=== PATIENT | female | born 1930 | race Caucasian/White ===

== ENCOUNTER 2018-05-08 03:12 | Emergency (ER) | payer MEDICARE, BC ==
[~2018-05-08] VITALS: Ht 172.7 cm; Wt 99.8 kg
[~2018-05-08 03:12] MED LIST: ACID CONTROL20 MG PO; ALBUTEROL INHAL17 GM IH; ALBUTEROL2.5 MG/3 M IH; APAP500; AUGMENTIN 875875 MG PO; BENICAR40 MG PO; BIOTIN2500 MCG PO; Biotin PO; CENTRUM SILVER1 EAC4 PO; CIPRO500 MG PO; CIPRODEX OTIC7.5 ML OTIC; CIPROFLOXACIN500 M1 PO; COLACE100 MG PO; COUMADIN 1MG TAB1 M1 PO; COUMADIN 2 MG TA2 M1 PO; COUMADIN 2.5MG2.5 M1 PO; COUMADIN 3 MG TA3 M1 PO; COUMADIN 4 MG TA4 M1; COUMADIN 5 MG TA5 M1 PO; COUMADIN PO; COUMADIN6 MG; COUMADIN6 MG PO; COZAAR 50 MG TA50 M2 PO; CRESTOR10 MG PO; DUONEB 2.5-0.5 M3 ML INH; ELIQUIS2.5 MG PO; ENABLEX15 MG PO; FAMOTIDINE20 MG PO; FIBER GUMMIES2.5 GM PO; FIBERCON CHEWA625 MG PO; FIBERCON PO; FIBERCON625 M1; FIBERCON625 M1 PO; KEFLEX500 MG PO; LANOXIN 0.120.125 M1 PG; LANOXIN 0.120.125 M1 PO; LASIX 20 MG TAB20 MG PO; LEVAQUIN 500 M500 M2 PO; LIPITOR20 MG PO; LOPRESSOR PO; MOTION RELIEF25 MG PO; MULTIVITAMINS1 EAC7 PO; MYRBETRIQ25 MG; NORCO 5-325 TA1 EACH PO; ONDANSETRON ODT4 MG PO; OXYBUTYNIN 5 MG5 M1 PO; PACERONE 200 M200 M1 PO; PEPCID20 MG PO; PEPCID40 MG; PREDNISONE 10 M10 MG PO; PREDNISONE 20 M20 M1 PO; PREMARIN VAGI42.5 G1 TOP; PRENATAL PO; PROPAFENONE 22225 M1 PO; PROTONIX40 M1 PO; PROTONIX40 M2 PO; SENNA PO; SIMVASTATIN40 MG PO; SOTALOL80 MG PO; SYMBICORT INH; SYMBICORT160 MCG/4. INH; SYNTHROID100 MCG PO; TAMIFLU30 MG PO; TOPROL XL50 MG PO; TRAMADOL 50 MG50 MG PO; TYLENOL325 MG PO; VENTOLIN HFA 1818 GM INH; WARFARIN SODIUM6 MG PO; XARELTO10 MG PO; ZANTAC 150MG T150 MG PO; ZANTAC 7575 MG PO
[2018-05-08] MEDS ORDERED: CARTIA XT120 M1 (03:22)
[2018-05-08 03:57] LABS: ABSOLUTE BASOPHILS 0.1 thou/uL (0.0-0.2); ABSOLUTE EOSINOPHILS 0.3 thou/uL (0.0-0.7); ABSOLUTE LYMPHOCYTES 2.2 thou/uL (0.8-5.3); ABSOLUTE MONOCYTES 0.6 thou/uL (0.0-1.2); ABSOLUTE NEUTROPHILS 4.4 thou/uL (1.6-8.1); BASOPHILS 0.9 %; EOSINOPHILS 3.4 %; HEMATOCRIT 40.6 % (37.0-47.0); HEMOGLOBIN 13.5 gm/dL (12.0-15.0); LYMPHOCYTES 28.8 %; MCH 29.6 pg (26.0-34.0); MCHC 33.2 g/dL (28.0-37.0); MONOCYTES 8.3 %; NUCLEATED RBCS 0 /100WBC; PLATELET COUNT* 138 thou/uL (150-400); POLYS 58.6 %; RBC 4.56 mil/uL (4.20-5.00); RDW-CV 14.2 % (10.5-14.5); WBC 7.5 thou/uL (4.0-11.0)
[2018-05-08 04:12] LABS: PROTIME 10.4 Seconds (9.20-11.50)
[2018-05-08 04:18] LABS: ANION GAP 7 mmol/L (7-16); BUN 20 mg/dL (7-18); CALCIUM 9.7 mg/dL (8.5-10.1); CHLORIDE 105 mmol/L (98-107); CO2 28 mmol/L (21-32); CREATININE 1.2 mg/dL (0.6-1.3); GLUCOSE 138 mg/dL (70-99); POTASSIUM 3.9 mmol/L (3.5-5.1); SODIUM 140 mmol/L (136-145)
[2018-05-08 04:30] LABS: ALBUMIN 3.3 g/dL (3.4-5.0); ALKALINE PHOSPHATASE 107 U/L (46-116); LIPASE 62 U/L (73-393); NT-PRO BRAIN NAT PEPTIDE 1050 pg/mL (<300); SGOT 15 U/L (15-37); SGPT 16 U/L (30-65); TOTAL BILIRUBIN 0.4 mg/dL (<0.1-1.0); TOTAL PROTEIN 6.6 g/dL (6.4-8.2); TROPONIN-I LEVEL <0.06 ng/mL (<0.06)
[2018-05-08 04:48] LABS: URINE BILIRUBIN NEGATIVE (Negative); URINE BLOOD TRACE (Negative); URINE CLARITY CLEAR; URINE COLOR YELLOW; URINE GLUCOSE-RANDOM NEGATIVE (Negative); URINE KETONES NEGATIVE (Negative); URINE LEUKOCYTES-REFLEX NEGATIVE (Negative); URINE NITRITE-REFLEX NEGATIVE (Negative); URINE PROTEIN NEGATIVE (Negative); URINE UROBILINOGEN 0.2 E.U./dl (0.2-1.0)
[2018-05-08] MEDS ORDERED: MOTION RELIEF25 MG PO (06:11)
[2018-05-08] MEDS ORDERED: ZOFRAN ODT4 MG PO (06:11)
[2018-05-08] MEDS ORDERED: CARAFATE 1 GM TA1 GM PO (06:16)
[2018-05-08 06:20] VITALS: BP 140/68
--- NOTE | 2018-05-08 13:43 | EKG ---
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: : 1930 Requested By: Kelly Mccurdy Order Number: [id number] MD: Michael Mora Measurements Intervals [place] Rate: 70 P: [place]: QRS: -78 QRSD: 167 T: 66 QT: 468 QTc: 506 Interpretive Statements Afib/flut and V-paced complexes No further analysis attempted due to paced rhythm Compared to ECG 07/25/2016 20:26:47 No significant changes Electronically Signed On 05-08-2018 13:43:32 CANDY CATCHER by Michael Mora [email or web address] <ELECTRONICALLY SIGNED> By: Michael Mora MD, [facility] 05/08/18 1343 0319 0319 Michael Mora MD, FAC /EPI
== END 2018-05-08 06:20 | disposition home or self-care (01) ==
LOC: M.ERS 03:12
PROVIDERS: Emergency Medicine
DX: K30 Functional dyspepsia (principal); R42 Dizziness and giddiness; I48.91 Unspecified atrial fibrillation; I10 Essential (primary) hypertension; J45.909 Unspecified asthma, uncomplicated; M19.90 Unspecified osteoarthritis, unspecified site; Z91.040 Latex allergy status; Z88.6 Allergy status to analgesic agent

== ENCOUNTER 2019-05-02 16:43 | Emergency (ER) | payer MEDICARE, BC ==
[~2019-05-02] VITALS: Ht 172.7 cm; Wt 92.1 kg
[~2019-05-02 16:43] MED LIST changes: +CARAFATE 1 GM TA1 GM PO; +CARTIA XT120 M1; +DOXYCYCLINE 10100 MG PO; +MECLIZINE HCL25 MG PO; +NEXIUM40 MG PO; +ZOFRAN ODT4 MG PO
[2019-05-02 17:46] LABS: ABSOLUTE EOSINOPHILS 0.1 thou/uL (0.0-0.7); ABSOLUTE LYMPHOCYTES 1.3 thou/uL (0.8-5.3); ABSOLUTE MONOCYTES 0.6 thou/uL (0.0-1.2); BASOPHILS 0.7 %; EOSINOPHILS 1.3 %; HEMATOCRIT 35.7 % (37.0-47.0); HEMOGLOBIN 12.1 gm/dL (12.0-15.0); LYMPHOCYTES 21.2 %; MCH 29.8 pg (26.0-34.0); MCHC 33.9 g/dL (28.0-37.0); MCV 87.9 fL (80.0-100.0); MONOCYTES 9.9 %; MPV 8.5 fl. (7.2-11.1); NUCLEATED RBCS 0 /100WBC; PLATELET COUNT* 131 thou/uL (150-400); POLYS 66.9 %; RBC 4.06 mil/uL (4.20-5.00); RDW-CV 13.9 % (10.5-14.5)
[2019-05-02 17:53] LABS: CALCIUM 9.8 mg/dL (8.5-10.1); INR 1.1; POTASSIUM 4.1 mmol/L (3.5-5.1); PROTIME 10.8 Seconds (9.20-11.50)
[2019-05-02 18:03] LABS: ALBUMIN 2.7 g/dL (3.4-5.0); TOTAL BILIRUBIN 0.4 mg/dL (<0.1-1.0); TOTAL PROTEIN 5.9 g/dL (6.4-8.2)
[2019-05-02 18:41] LABS: URINE BILIRUBIN NEGATIVE (Negative); URINE BLOOD NEGATIVE (Negative); URINE CLARITY CLEAR; URINE COLOR YELLOW; URINE GLUCOSE-RANDOM NEGATIVE (Negative); URINE KETONES NEGATIVE (Negative); URINE LEUKOCYTES-REFLEX NEGATIVE (Negative); URINE NITRITE-REFLEX NEGATIVE (Negative); URINE PROTEIN NEGATIVE (Negative); URINE UROBILINOGEN 0.2 E.U./dl (0.2-1.0)
[2019-05-02] MEDS ORDERED: ACIPHEX 20 MG T20 MG PO (18:55)
[2019-05-02 19:40] VITALS: BP 146/74
--- NOTE | 2019-05-03 12:48 | EKG ---
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1930 Requested By: Larry Land Order Number: [id number] MD: Vaughn Bright Measurements Intervals [place] Rate: 69 P: [place]: QRS: -77 QRSD: 141 T: 75 QT: 407 QTc: 436 Interpretive Statements Afib/flut and V-paced complexes No further analysis attempted due to paced rhythm Baseline wander in lead(s) III,aVL,aVF Compared to ECG 11/16/2018 08:45:08 No significant changes Electronically Signed On 05-03-2019 12:48:17 PIPE BLANKS CUT OFF SAW OPERATOR by Vaughn Bright [email or web address] <ELECTRONICALLY SIGNED> By: Vaughn Bright MD, FAC 05/03/19 1248 1651 1651 Vaughn Bright MD, [facility] /EPI
== END 2019-05-02 19:42 | disposition home or self-care (01) ==
LOC: M.ERS 16:43
PROVIDERS: Emergency Medicine
DX: K21.9 Gastro-esophageal reflux disease without esophagitis (principal); I10 Essential (primary) hypertension; I48.91 Unspecified atrial fibrillation; E10.9 Type 1 diabetes mellitus without complications; J45.909 Unspecified asthma, uncomplicated; M19.90 Unspecified osteoarthritis, unspecified site; Z96.651 Presence of right artificial knee joint; Z90.710 Acquired absence of both cervix and uterus; Z95.0 Presence of cardiac pacemaker; Z91.048 Other nonmedicinal substance allergy status; Z91.040 Latex allergy status; Z88.6 Allergy status to analgesic agent

== ENCOUNTER 2020-01-23 06:28 | Emergency (ER) | payer MEDICARE, BC ==
[~2020-01-23] VITALS: Ht 172.7 cm; Wt 88.5 kg
[~2020-01-23 06:28] MED LIST changes: +ACIPHEX 20 MG T20 MG PO
[2020-01-23] MEDS ORDERED: TRADJENTA5 MG (06:44)
[2020-01-23 06:54] LABS: ABSOLUTE BASOPHILS 0.1 thou/uL (0.0-0.2); ABSOLUTE EOSINOPHILS 0.1 thou/uL (0.0-0.7); ABSOLUTE LYMPHOCYTES 1.3 thou/uL (0.8-5.3); ABSOLUTE MONOCYTES 0.4 thou/uL (0.0-1.2); ABSOLUTE NEUTROPHILS 5.9 thou/uL (1.6-8.1); BASOPHILS 0.9 %; EOSINOPHILS 1.5 %; HEMOGLOBIN 13.6 gm/dL (12.0-15.0); LYMPHOCYTES 16.8 %; MCHC 34.1 g/dL (28.0-37.0); MONOCYTES 5.7 %; NUCLEATED RBCS 0 /100WBC; PLATELET COUNT* 127 thou/uL (150-400); POLYS 75.1 %; RBC 4.54 mil/uL (4.20-5.00); RDW-CV 14.5 % (10.5-14.5); WBC 7.9 thou/uL (4.0-11.0)
[2020-01-23 07:02] LABS: INR 1.1; PROTIME 11.1 Seconds (9.20-11.50)
[2020-01-23 07:07] LABS: CALCIUM 9.5 mg/dL (8.5-10.1); POTASSIUM 4.1 mmol/L (3.5-5.1)
[2020-01-23 07:18] LABS: ALBUMIN 3.3 g/dL (3.4-5.0); MAGNESIUM 1.7 mg/dL (1.8-2.4); TOTAL BILIRUBIN 0.5 mg/dL (<0.1-1.0); TOTAL PROTEIN 6.7 g/dL (6.4-8.2)
[2020-01-23 07:56] LABS: URINE BILIRUBIN NEGATIVE (Negative); URINE BLOOD 3+ (Negative); URINE CLARITY CLEAR; URINE COLOR YELLOW; URINE GLUCOSE-RANDOM NEGATIVE (Negative); URINE KETONES NEGATIVE (Negative); URINE LEUKOCYTES-REFLEX NEGATIVE (Negative); URINE NITRITE-REFLEX NEGATIVE (Negative); URINE PROTEIN NEGATIVE (Negative); URINE SPECIFIC GRAVITY >= 1.030 (1.005-1.030); URINE UROBILINOGEN 0.2 E.U./dl (0.2-1.0)
[2020-01-23 08:03] LABS: BACTERIA-REFLEX None Seen /HPF (None Seen); SQUAMOUS 0-3 Few /LPF (0-3); URINE RBC 3-10 Few /HPF (0-2); URINE WBC-REFLEX None Seen /HPF (0-5)
[2020-01-23 08:04] LABS: CALCIUM OXALATE >10 Many /LPF (None Seen); CASTS None Seen /LPF (None Seen); MUCUS 4-6 Moderate strn/LPF (None Seen)
[2020-01-23] MEDS ORDERED: MACROBID 100 M100 M1 PO (09:36)
[2020-01-23] MEDS ORDERED: ZOFRAN ODT4 MG PO (09:36)
[2020-01-23 09:49] VITALS: BP 141/75
--- NOTE | 2020-01-23 13:41 | EKG ---
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: : 1930 Requested By: Kelly Mccurdy Order Number: [id number] MD: Sonny Melendez Measurements Intervals [place] Rate: 70 P: [place]: QRS: -78 QRSD: 158 T: 71 QT: 466 QTc: 503 Interpretive Statements Afib/flutter and ventricular-paced rhythm No further analysis attempted due to paced rhythm Baseline wander in lead(s) III,V5 Compared to ECG 05/02/2019 16:51:48 No significant changes Electronically Signed On 01-23-2020 13:41:27 CDT by Sonny Melendez [email or web address] <ELECTRONICALLY SIGNED> By: Sonny Melendez MD, [facility] 01/23/20 1341 1 1 Sonny Melendez MD, [facility] /EPI
== END 2020-01-23 09:50 | disposition home or self-care (01) ==
LOC: M.ERS 06:28
PROVIDERS: Emergency Medicine
DX: K80.20 Calculus of gallbladder without cholecystitis without obstruction (principal); R31.9 Hematuria, unspecified; R10.31 Right lower quadrant pain; I10 Essential (primary) hypertension; J45.909 Unspecified asthma, uncomplicated; M19.90 Unspecified osteoarthritis, unspecified site; E10.9 Type 1 diabetes mellitus without complications; Z91.040 Latex allergy status; Z88.6 Allergy status to analgesic agent; Z79.899 Other long term (current) drug therapy; Z96.651 Presence of right artificial knee joint; Z90.710 Acquired absence of both cervix and uterus

== ENCOUNTER 2020-10-01 16:49 | Emergency (ER) | payer MEDICARE, BC ==
[~2020-10-01] VITALS: Ht 170.2 cm; Wt 92.1 kg
[~2020-10-01 16:49] MED LIST changes: +MACROBID 100 M100 M1 PO; +TRADJENTA5 MG
[2020-10-01 17:23] LABS: RDW-CV 14.7 % (10.5-14.5)
[2020-10-01 17:25] LABS: ABSOLUTE EOSINOPHILS 0.2 thou/uL (0.0-0.7); ABSOLUTE LYMPHOCYTES 1.9 thou/uL (0.8-5.3); ABSOLUTE MONOCYTES 0.5 thou/uL (0.0-1.2); ABSOLUTE NEUTROPHILS 3.2 thou/uL (1.6-8.1); BASOPHILS 0.8 %; EOSINOPHILS 3.4 %; HEMATOCRIT 38.9 % (37.0-47.0); LYMPHOCYTES 31.9 %; MCH 29.2 pg (26.0-34.0); MCHC 33.4 g/dL (28.0-37.0); MCV 87.6 fL (80.0-100.0); MPV 7.9 fl. (7.2-11.1); NUCLEATED RBCS 0 /100WBC; PLATELET COUNT* 136 thou/uL (150-400); POLYS 55.9 %; RBC 4.44 mil/uL (4.20-5.00); WBC 5.8 thou/uL (4.0-11.0)
[2020-10-01 17:34] LABS: CALCIUM 9.4 mg/dL (8.5-10.1); CREATININE 0.9 mg/dL (0.6-1.3); POTASSIUM 4.2 mmol/L (3.5-5.1)
[2020-10-01 17:39] LABS: APTT 26.4 Seconds (25.0-31.3); INR 1.1; PROTIME 11.3 Seconds (9.20-11.50)
[2020-10-01 17:44] LABS: ALBUMIN 3.2 g/dL (3.4-5.0); TOTAL BILIRUBIN 0.3 mg/dL (<0.1-1.0); TOTAL PROTEIN 6.9 g/dL (6.4-8.2)
[2020-10-01 18:46] VITALS: BP 138/72
--- NOTE | 2020-10-02 09:38 | EKG ---
[place] [address] ELECTROCARDIOGRAM REPORT Name: ALYCE RIBEIRO Room: [facility]#: [id number] Admission: 10/01/20 Attend Phys: Discharge: 10/01/20 Date of : 32 Date of Service: 10/01/20 1710 Report #: [id number] THIS REPORT FOR: //name// [facility] ED Test Date: 2020-10-01 Test Time: 17:10:34 Pat Name: ALYCE RIBEIRO Department: Room: Gender: F Data Integrity Analyst: ANDRE : 1930 Requested By: Isidro Ramos Order Number: [id number] MD: Sonny Melendez Measurements Intervals [place] Rate: 70 P: [place]: QRS: -81 QRSD: 144 T: 55 QT: 452 QTc: 488 Interpretive Statements Afib/flut and V-paced complexes No further analysis attempted due to paced rhythm Compared to ECG 01/23/2020 07:12:36 No significant changes Electronically Signed On 10-02-2020 9:37:56 CDT by Sonny Melendez [email or web address] <ELECTRONICALLY SIGNED> By: Sonny Melendez MD, [facility] 10/02/20 0937 1710 1710 Sonny Melendez MD, [facility] /EPI
== END 2020-10-01 18:47 | disposition home or self-care (01) ==
LOC: M.ERS 16:49
PROVIDERS: Family Medicine
DX: R42 Dizziness and giddiness (principal); R51.9 Headache, unspecified; I10 Essential (primary) hypertension; J45.909 Unspecified asthma, uncomplicated; E10.9 Type 1 diabetes mellitus without complications; I48.91 Unspecified atrial fibrillation; Z95.0 Presence of cardiac pacemaker; Z96.651 Presence of right artificial knee joint; Z90.711 Acquired absence of uterus with remaining cervical stump; Z79.899 Other long term (current) drug therapy; Z91.048 Other nonmedicinal substance allergy status; Z88.6 Allergy status to analgesic agent; Z91.040 Latex allergy status